=== PATIENT | female | born 1960 | race Caucasian/White ===

== ENCOUNTER 2024-09-02 09:43 | Emergency (ER) | payer BC, OTHER ==
[~2024-09-02] VITALS: Ht 170.2 cm; Wt 77.1 kg
[2024-09-02 09:52] VITALS: TEMP 98.2
[2024-09-02] MEDS ORDERED: TRAM50TA2 PO (11:13)
[2024-09-02] MEDS ORDERED: IBUP-1490 PO (11:13)
[2024-09-02 11:24] VITALS: BP 130/70; O2SAT 98
[2024-09-02] MEDS ORDERED: TRAMADOL HCL 50 MG TABLET PO ONE (11:30)
== END 2024-09-02 11:25 | disposition home or self-care (01) ==
LOC: ER 09:43
DX: S93.692A Other sprain of left foot, initial encounter (principal); S93.691A Other sprain of right foot, initial encounter; I10 Essential (primary) hypertension; Z87.11 Personal history of peptic ulcer disease; Z88.6 Allergy status to analgesic agent; W01.0XXA Fall on same level from slipping, tripping and stumbling without subsequent striking against object, initial encounter; Y93.01 Activity, walking, marching and hiking; Y92.89 Other specified places as the place of occurrence of the external cause; Y99.8 Other external cause status
CPT/HCPCS: 73630-TC